=== PATIENT | male | born 1970 | race Caucasian/White ===

== ENCOUNTER 2018-05-15 19:04 | Inpatient (IN) | payer OTHER ==
[2018-05-15] MEDS ORDERED: THIAMINE 100 MG/ML 2 ML VIAL IM STA ×2 (19:39→20:02)
[2018-05-15] MEDS ORDERED: SODIUM CHLORIDE 0.9% 1,000 ML IV STA ×2 (19:39)
[2018-05-15] MEDS ORDERED: MULTIVITAMINS, THERA 1 EACH TAB PO STA (19:39)
[2018-05-15] MEDS ORDERED: SODIUM CHLORIDE 0.9% 1,000 ML with MVI, ADULT NO.4 WITH VIT K 10 ML, THIAMINE 100 MG, F... IV ONE ×4 (19:40)
[2018-05-15] MEDS ORDERED: IPRATROPIUM-ALBUTEROL 3 ML NEB INHALATION STA (19:41)
[2018-05-15] MEDS ORDERED: cefTRIAXone IN SWFI 1,000 MG/10 ML SYRINGE IVP STA (19:42)
[2018-05-15 19:55] LABS: Basophils # (A) 0.1 k/uL (0-0.2); Basophils % (A) 1 %; Eosinophils % (A) 1 %; HCT 41.2 % (39.0-53.0); HGB 13.7 gm/dL (13.0-17.5); Lymphocytes # (A) 2.5 k/uL (1.0-4.8); Lymphocytes % (A) 29 %; MCH 38.6 pg (25.0-35.0); MCHC 33.3 g/dL (31.0-37.0); Macrocytosis Marked; Mean Platelet Volume 9.6; Monocytes # (A) 0.6 k/uL (0-1.0); Monocytes % (A) 7 %; Neutrophils # (A) 5.2 k/uL (1.3-7.7); Neutrophils % (A) 60 %; RBC 3.55 m/uL (4.30-5.90); RDW 14.6 % (11.5-15.5); WBC 8.6 k/uL (3.8-10.6)
[2018-05-15 19:58] LABS: Glucose,Whole Blood 87 mg/dL (75-99)
[2018-05-15] MEDS ORDERED: LORazepam 2 MG/ML INJ IV PRN ×3 (20:02)
[2018-05-15 20:09] LABS: ALT 35 U/L (21-72); AST 222 U/L (17-59); Albumin 3.5 g/dL (3.5-5.0); Alkaline Phosphatase 258 U/L (38-126); Amylase 67 U/L (30-110); Anion Gap 20 mmol/L; Blood Urea Nitrogen 9 mg/dL (9-20); Calcium 7.4 mg/dL (8.4-10.2); Carbon Dioxide 30 mmol/L (22-30); Chloride 92 mmol/L (98-107); Glucose 89 mg/dL (74-99); Lipase 585 U/L (23-300); Magnesium 1.4 mg/dL (1.6-2.3); Phosphorus 3.7 mg/dL (2.5-4.5); Potassium 3.8 mmol/L (3.5-5.1); Sodium 142 mmol/L (137-145); Total Protein 9.1 g/dL (6.3-8.2)
[2018-05-15] MEDS ORDERED: methylPREDNISolone SOD SUCCI 125 MG/2 ML VIAL IV STA (20:09)
--- NOTE | 2018-05-15 20:09 | ED ---
Alcohol HPI - General Source: family, EMS, RN notes reviewed, old records reviewed Mode of arrival: EMS Limitations: no limitations - History of Present Illness MD Complaint: alcohol dependence <Geraldine Pennington - Last Filed: 05/15/18 20:28> <Juan Lawrence - Last Filed: 05/15/18 22:27> - General Chief Complaint: Alcohol Stated Complaint: etoh Time Seen by Provider: 05/15/18 19:30 - History of Present Illness Initial Comments: 47-year-old male with history of severe chronic alcoholism presents today with increased weakness, cough and shortness of breath, and for treatment for his alcohol is. He is brought here by his sister. Arrived via EMS. Patient reports that he drinks approximately a pint a day over the past month. Prior to this it was a fifth or handle. Patient has been drinking since he was 14 years old. Patient reports that he lives with home with his mother. They do report that is possible he could've aspirated causing pneumonia. He does smoke. Does report that he knows that his urine has been very dark in color. denies any fever or chills. Patient denies any recent fever, chills, chest pain, back pain, abdominal pain, numbness or tingling, dysuria, constipation or diarrhea, headaches or visual changes, or any other current symptoms (Geraldine Pennington) - Related Data Home Medications Medication Instructions Recorded Confirmed No Known Home Medications [No 05/15/18 05/15/18 Known Home Medications] Allergies Allergy/AdvReac Type Severity Reaction Status Date / Time No Known Allergies Allergy Verified 05/15/18 19:23 Review of Systems ROS Other: All systems not noted in ROS Statement are negative. <Geraldine Pennington - Last Filed: 05/15/18 20:28> ROS Other: All systems not noted in ROS Statement are negative. <Juan Lawrence - Last Filed: 05/15/18 22:27> ROS Statement: Those systems with pertinent positive or pertinent negative responses have been documented in the HPI. Past Medical History Past Medical History: No Reported History, Seizure Disorder Additional Past Medical History / Comment(s): Pt admitted to [facility] ER via EMS at 0751 on 10/21/14 for altered mental status. All hx obtained from medical records and pt's mother. Pt is currently a unreliable historian. Pt recently had stopped drinking alcohol. He drank 1/2 pint liquor last nite around 1900 because he was feeling "bad". He had not drank alcohol for 2 days prior to that. Mother states she left the house for a short time and when she returned she heard banging noises in the bathroom and opened door enough to see pt lying on the floor. She was not certain if he was breathing. Pt had blood coming from his mouth. Mother then dialed 911. Pt has no other hx than the ETOH abuse. History of Any Multi-Drug Resistant Organisms: None Reported Past Surgical History: No Surgical Hx Reported Additional Past Surgical History / Comment(s): Pt's mother states he has never had surgery. Past Anesthesia/Blood Transfusion Reactions: No Reported Reaction Past Psychological History: Depression Smoking Status: Current every day smoker Past Alcohol Use History: Daily, Heavy Past Drug Use History: None Reported, Marijuana - Past Family History Father Family Medical History: Diabetes Mellitus, Hypertension Additional Family Medical History / Comment(s): Father is alive and is 66 yrs old. Mother Family Medical History: No Reported History Additional Family Medical History / Comment(s): Mother is alive at 66yrs of age. <Geraldine Pennington - Last Filed: 05/15/18 20:28> General Exam Limitations: no limitations General appearance: alert, in no apparent distress Head exam: Present: atraumatic, normocephalic, normal inspection Eye exam: Present: normal appearance, PERRL, EOMI. Absent: scleral icterus, conjunctival injection, periorbital swelling ENT exam: Present: normal exam, mucous membranes moist Neck exam: Present: normal inspection. Absent: tenderness, meningismus, lymphadenopathy Respiratory exam: Present: wheezes (Patient has significant wheezing and rhonchi throughout all lung suarez.). Absent: normal lung sounds bilaterally, respiratory distress, rales, rhonchi, stridor Cardiovascular Exam: Present: regular rate, normal rhythm, normal heart sounds. Absent: systolic murmur, diastolic murmur, rubs, gallop, clicks GI/Abdominal exam: Present: soft, normal bowel sounds. Absent: distended, tenderness, guarding, rebound, rigid Extremities exam: Present: normal inspection, full ROM, normal capillary refill. Absent: tenderness, pedal edema, joint swelling, calf tenderness Back exam: Present: normal inspection Neurological exam: Present: alert, oriented X3, CN II-XII intact Psychiatric exam: Present: normal affect, normal mood Skin exam: Present: warm, dry, intact. Absent: normal color (Patient has significant jaundice. Patient's skin icteric as well as eyes.), rash <Geraldine Pennington - Last Filed: 05/15/18 20:28> <Juan Lawrence - Last Filed: 05/15/18 22:27> - General Exam Comments Initial Comments: 47-year-old male. He appears very weak. He appears icteric. Patient is unkept, apparently Patient is not showered and quite some time. ( Geraldine Pennington) Vital Signs 05/15/18 05/15/18 05/15/18 19:12 20:17 20:41 Temperature 97.7 F 97.5 F L Pulse Rate 116 H 110 H 110 H Respiratory 20 20 Rate Blood Pressure 119/72 130/68 O2 Sat by Pulse 97 96 Oximetry 05/15/18 05/15/18 05/15/18 20:49 21:00 21:57 Temperature Pulse Rate 110 H 102 H 76 Respiratory 20 18 Rate Blood Pressure 111/68 115/92 O2 Sat by Pulse 98 97 Oximetry Medical Decision Making - Lab Data Result diagrams: 05/15/18 19:29 05/15/18 19:29 - Radiology Data Radiology results: report reviewed <Geraldine Pennington - Last Filed: 05/15/18 20:28> - Lab Data Result diagrams: 05/15/18 19:29 05/15/18 19:29 <Juan Lawrence - Last Filed: 05/15/18 22:27> - Medical Decision Making 47-year-old male with a history of severe alcoholism presents emergency department today with increased weakness shortness of breath. He is a heavy smoker. Patient appears extremely icteric on exam. He has no other complaints denies any chest pain or abdominal pain. His family brought him in due to severe weakness. Patient was started on IV fluids, started on banana bag, he does have coarse lung sounds are all lung suarez. Given Rocephin and Solu- Medrol and breathing treatment, for possible pneumonia. Chest x-ray obtained. Patient has severe elevation of bilirubin of 21.8. ETOH levels 435. At this time are pending ultrasound results and a few other labs. Final disposition will be made by Dr. Lawrence. Care was transferred at 8:30 PM. (Geraldine Pennington) Case discussed with Dr. Mahmood. Patient will be admitted for medical management. Acalculous cholecystitis may be normal finding in this clinical picture. (Juan Lawrence) - Lab Data Lab Results 05/15/18 05/15/18 05/15/18 Range/Units 19:29 19:29 19:29 WBC 8.6 (3.8-10.6) k/uL RBC 3.55 L (4.30-5.90) m/uL Hgb 13.7 (13.0-17.5) gm/dL Hct 41.2 (39.0-53.0) % MCV 116.0 H (80.0-100.0) fL MCH 38.6 H (25.0-35.0) pg MCHC 33.3 (31.0-37.0) g/dL RDW 14.6 (11.5-15.5) % Plt Count 44 L* (150-450) k/uL Neutrophils % 60 % Lymphocytes % 29 % Monocytes % 7 % Eosinophils % 1 % Basophils % 1 % Neutrophils # 5.2 (1.3-7.7) k/uL Lymphocytes # 2.5 (1.0-4.8) k/uL Monocytes # 0.6 (0-1.0) k/uL Eosinophils # 0.0 (0-0.7) k/uL Basophils # 0.1 (0-0.2) k/uL Manual Slide Review Performed Macrocytosis Marked PT 18.3 H (9.0-12.0) sec INR 2.0 H (<1.2) APTT 32.1 H (22.0-30.0) sec Sodium 142 (137-145) mmol/L Potassium 3.8 (3.5-5.1) mmol/L Chloride 92 L (98-107) mmol/L Carbon Dioxide 30 (22-30) mmol/L Anion Gap 20 mmol/L BUN 9 (9-20) mg/dL Creatinine 0.60 L (0.66-1.25) mg/dL Est GFR (CKD-EPI)AfAm >90 (>60 ml/min/1.73 sqM) Est GFR (CKD-EPI)NonAf >90 (>60 ml/min/1.73 sqM) Glucose 89 (74-99) mg/dL POC Glucose (mg/dL) (75-99) mg/dL POC Glu Media Services Director ID Plasma Lactic Acid Nik (0.7-2.0) mmol/L Calcium 7.4 L (8.4-10.2) mg/dL Phosphorus 3.7 (2.5-4.5) mg/dL Magnesium 1.4 L (1.6-2.3) mg/dL Total Bilirubin 21.8 H* (0.2-1.3) mg/dL Conjugated Bilirubin (0.0-0.3) mg/dL Unconjugated Bilirubin (0.0-1.1) mg/dL Delta Bilirubin (0.0-0.2) mg/dL AST 222 H (17-59) U/L ALT 35 (21-72) U/L Alkaline Phosphatase 258 H (38-126) U/L Total Protein 9.1 H (6.3-8.2) g/dL Albumin 3.5 (3.5-5.0) g/dL Amylase 67 (30-110) U/L Lipase 585 H (23-300) U/L Urine Color Urine Appearance (Clear) Urine pH (5.0-8.0) Ur Specific [place] (1.001-1.035) Urine Protein (Negative) Urine Glucose (UA) (Negative) Urine Ketones (Negative) Urine Blood (Negative) Urine Nitrite (Negative) Urine Bilirubin (Negative) Urine Urobilinogen (<2.0) mg/dL Ur Leukocyte Esterase (Negative) Urine RBC (0-5) /hpf Urine WBC (0-5) /hpf Urine Bacteria (None) /hpf Cellular Casts (0) /lpf Urine Mucus (None) /hpf Urine Opiates Screen (NotDetected) Ur Oxycodone Screen (NotDetected) Urine Methadone Screen (NotDetected) Ur Propoxyphene Screen (NotDetected) Acetaminophen ug/mL Ur Barbiturates Screen (NotDetected) U Tricyclic Antidepress (NotDetected) Ur Phencyclidine Scrn (NotDetected) Ur Amphetamines Screen (NotDetected) U Methamphetamines Scrn (NotDetected) U Benzodiazepines Scrn (NotDetected) Urine Cocaine Screen (NotDetected) U Marijuana (THC) Screen (NotDetected) Serum Alcohol 435 mg/dL Hepatitis A IgM Ab 05/15/18 05/15/18 05/15/18 Range/Units 19:29 19:29 19:29 WBC (3.8-10.6) k/uL RBC (4.30-5.90) m/uL Hgb (13.0-17.5) gm/dL Hct (39.0-53.0) % MCV (80.0-100.0) fL MCH (25.0-35.0) pg MCHC (31.0-37.0) g/dL RDW (11.5-15.5) % Plt Count (150-450) k/uL Neutrophils % % Lymphocytes % % Monocytes % % Eosinophils % % Basophils % % Neutrophils # (1.3-7.7) k/uL Lymphocytes # (1.0-4.8) k/uL Monocytes # (0-1.0) k/uL Eosinophils # (0-0.7) k/uL Basophils # (0-0.2) k/uL Manual Slide Review Macrocytosis PT (9.0-12.0) sec INR (<1.2) APTT (22.0-30.0) sec Sodium (137-145) mmol/L Potassium (3.5-5.1) mmol/L Chloride (98-107) mmol/L Carbon Dioxide (22-30) mmol/L Anion Gap mmol/L BUN (9-20) mg/dL Creatinine (0.66-1.25) mg/dL Est GFR (CKD-EPI)AfAm (>60 ml/min/1.73 sqM) Est GFR (CKD-EPI)NonAf (>60 ml/min/1.73 sqM) Glucose (74-99) mg/dL POC Glucose (mg/dL) (75-99) mg/dL POC Glu Media Services Director ID Plasma Lactic Acid Nik 2.9 H* (0.7-2.0) mmol/L Calcium (8.4-10.2) mg/dL Phosphorus (2.5-4.5) mg/dL Magnesium (1.6-2.3) mg/dL Total Bilirubin 22.0 H* (0.2-1.3) mg/dL Conjugated Bilirubin 16.0 H (0.0-0.3) mg/dL Unconjugated Bilirubin 2.5 H (0.0-1.1) mg/dL Delta Bilirubin 3.5 H (0.0-0.2) mg/dL AST (17-59) U/L ALT (21-72) U/L Alkaline Phosphatase (38-126) U/L Total Protein (6.3-8.2) g/dL Albumin (3.5-5.0) g/dL Amylase (30-110) U/L Lipase (23-300) U/L Urine Color Urine Appearance (Clear) Urine pH (5.0-8.0) Ur Specific [place] (1.001-1.035) Urine Protein (Negative) Urine Glucose (UA) (Negative) Urine Ketones (Negative) Urine Blood (Negative) Urine Nitrite (Negative) Urine Bilirubin (Negative) Urine Urobilinogen (<2.0) mg/dL Ur Leukocyte Esterase (Negative) Urine RBC (0-5) /hpf Urine WBC (0-5) /hpf Urine Bacteria (None) /hpf Cellular Casts (0) /lpf Urine Mucus (None) /hpf Urine Opiates Screen (NotDetected) Ur Oxycodone Screen (NotDetected) Urine Methadone Screen (NotDetected) Ur Propoxyphene Screen (NotDetected) Acetaminophen <10.0 ug/mL Ur Barbiturates Screen (NotDetected) U Tricyclic Antidepress (NotDetected) Ur Phencyclidine Scrn (NotDetected) Ur Amphetamines Screen (NotDetected) U Methamphetamines Scrn (NotDetected) U Benzodiazepines Scrn (NotDetected) Urine Cocaine Screen (NotDetected) U Marijuana (THC) Screen (NotDetected) Serum Alcohol mg/dL Hepatitis A IgM Ab 05/15/18 05/15/18 05/15/18 Range/Units 19:55 20:10 21:21 WBC (3.8-10.6) k/uL RBC (4.30-5.90) m/uL Hgb (13.0-17.5) gm/dL Hct (39.0-53.0) % MCV (80.0-100.0) fL MCH (25.0-35.0) pg MCHC (31.0-37.0) g/dL RDW (11.5-15.5) % Plt Count (150-450) k/uL Neutrophils % % Lymphocytes % % Monocytes % % Eosinophils % % Basophils % % Neutrophils # (1.3-7.7) k/uL Lymphocytes # (1.0-4.8) k/uL Monocytes # (0-1.0) k/uL Eosinophils # (0-0.7) k/uL Basophils # (0-0.2) k/uL Manual Slide Review Macrocytosis PT (9.0-12.0) sec INR (<1.2) APTT (22.0-30.0) sec Sodium (137-145) mmol/L Potassium (3.5-5.1) mmol/L Chloride (98-107) mmol/L Carbon Dioxide (22-30) mmol/L Anion Gap mmol/L BUN (9-20) mg/dL Creatinine (0.66-1.25) mg/dL Est GFR (CKD-EPI)AfAm (>60 ml/min/1.73 sqM) Est GFR (CKD-EPI)NonAf (>60 ml/min/1.73 sqM) Glucose (74-99) mg/dL POC Glucose (mg/dL) 87 (75-99) mg/dL POC Glu Media Services Director ID Himanshumirandaburak Vicente Plasma Lactic Acid Nik (0.7-2.0) mmol/L Calcium (8.4-10.2) mg/dL Phosphorus (2.5-4.5) mg/dL Magnesium (1.6-2.3) mg/dL Total Bilirubin (0.2-1.3) mg/dL Conjugated Bilirubin (0.0-0.3) mg/dL Unconjugated Bilirubin (0.0-1.1) mg/dL Delta Bilirubin (0.0-0.2) mg/dL AST (17-59) U/L ALT (21-72) U/L Alkaline Phosphatase (38-126) U/L Total Protein (6.3-8.2) g/dL Albumin (3.5-5.0) g/dL Amylase (30-110) U/L Lipase (23-300) U/L Urine Color Dark Brown Urine Appearance Turbid (Clear) Urine pH 6.5 (5.0-8.0) Ur Specific [place] 1.020 (1.001-1.035) Urine Protein 1+ H (Negative) Urine Glucose (UA) Negative (Negative) Urine Ketones 1+ H (Negative) Urine Blood Moderate H (Negative) Urine Nitrite Negative (Negative) Urine Bilirubin 4+ H (Negative) Urine Urobilinogen >12.0 (<2.0) mg/dL Ur Leukocyte Esterase Negative (Negative) Urine RBC 4 (0-5) /hpf Urine WBC 3 (0-5) /hpf Urine Bacteria Few H (None) /hpf Cellular Casts 496 (0) /lpf Urine Mucus Many H (None) /hpf Urine Opiates Screen Not Detected (NotDetected) Ur Oxycodone Screen Not Detected (NotDetected) Urine Methadone Screen Not Detected (NotDetected) Ur Propoxyphene Screen Not Detected (NotDetected) Acetaminophen ug/mL Ur Barbiturates Screen Not Detected (NotDetected) U Tricyclic Antidepress Not Detected (NotDetected) Ur Phencyclidine Scrn Not Detected (NotDetected) Ur Amphetamines Screen Not Detected (NotDetected) U Methamphetamines Scrn Not Detected (NotDetected) U Benzodiazepines Scrn Not Detected (NotDetected) Urine Cocaine Screen Not Detected (NotDetected) U Marijuana (THC) Screen Not Detected (NotDetected) Serum Alcohol mg/dL Hepatitis A IgM Ab NEGATIVE 05/15/18 20:08 EKG performed at 1946 shows sinus tachycardia, low voltage QRS. Borderline EKG. 2. 101 bpm. RI interval is 1:30 milliseconds. QRS duration is 88 ms. QT QTc is 386/400 ms. (Geraldine Pennington) - Radiology Data X-ray shows normal chest clearing of left upper mild atelectasis compared old exam. (Geraldine Pennington) Disposition <Geraldine Pennington - Last Filed: 05/15/18 20:28> Is patient prescribed a controlled substance at d/c from ED?: No Decision to Admit Reason: Admit from EC Decision Date: 05/15/18 Decision Time: 22:27 <Juan Lawrence - Last Filed: 05/15/18 22:27> Clinical Impression: Alcoholic hepatitis, Hyperbilirubinemia, Alcohol intoxication, EtOH dependence Disposition: ADMITTED IP TO THIS HOSP Condition: Serious Referrals: None,Stated [Primary Care Provider] - 1-2 days
[2018-05-15 20:19] LABS: Alcohol 435 mg/dL; Total Bilirubin 21.8 mg/dL (0.2-1.3)
[2018-05-15 20:21] LABS: Partial Thromboplastin Time 32.1 sec (22.0-30.0); Prothrombin Time 18.3 sec (9.0-12.0)
[2018-05-15] MEDS ORDERED: MAGNESIUM SULFATE-D5W PMX 1 GM in DEXTROSE/WATER 1 100ML.BAG IVPB ONE (20:24)
--- NOTE | 2018-05-15 20:26 | XR ---
EXAMINATION TYPE: XR chest 2V DATE OF EXAM: 05/15/2018 COMPARISON: 08/23/2015 HISTORY: Lethargy TECHNIQUE: Frontal and lateral views of the chest are obtained. FINDINGS: Heart and mediastinum are normal. Lungs are clear. Diaphragm is normal. There are chest le ads. Bony thorax appears normal. IMPRESSION: Normal chest. There is clearing of left upper lobe mild atelectasis compared to old exam .
[2018-05-15 20:28] LABS: Bilirubin, Delta 3.5 mg/dL (0.0-0.2); Bilirubin,Unconjugated 2.5 mg/dL (0.0-1.1)
[2018-05-15 20:29] LABS: Platelet Count 44 k/uL (150-450)
[2018-05-15 21:05] LABS: Hepatitis A AB IgM Index 0.01; Hepatitis A Antibody IgM NEGATIVE
[2018-05-15 21:36] LABS: Appearance,Urine Turbid (Clear); Bacteria,Urine Few /hpf; Bilirubin,Urine 4+ (Negative); Blood,Urine Moderate (Negative); Cellular Casts,Urine 496 /lpf (0); Color,Urine Dark Brown; Glucose,Urine (UA) Negative (Negative); Ketones,Urine 1+ (Negative); Leukocyte Esterase,Urine Negative (Negative); Mucus,Urine Many /hpf; Nitrite,Urine Negative (Negative); PH, Urine 6.5 (5.0-8.0); Protein,Urine 1+ (Negative); RBC,Urine 4 /hpf (0-5); Urobilinogen,Urine >12.0 mg/dL (<2.0); WBC,Urine 3 /hpf (0-5)
[2018-05-15 21:42] LABS: Amphetamine Screen,Urine Not Detected (NotDetected); Barbiturate Screen,Urine Not Detected (NotDetected); Benzodiazepines Screen,Urine Not Detected (NotDetected); Cocaine Screen,Urine Not Detected (NotDetected); Methadone Screen, Urine Not Detected (NotDetected); Opiate Screen,Urine Not Detected (NotDetected); Oxycodone Screen, Urine Not Detected (NotDetected); Phencyclidine Screen,Urine Not Detected (NotDetected); Tricyclic Antidepressant,Urine Not Detected (NotDetected); Urn Cannabinoid Scrn Not Detected (NotDetected)
--- NOTE | 2018-05-15 22:06 | US ---
EXAMINATION TYPE: US gallbladder DATE OF EXAM: 05/15/2018 COMPARISON: NONE CLINICAL HISTORY: Pain. Pain ETOH. Exam limitations due to body habitus unable to penetrate. EXAM MEASUREMENTS: Liver Length: 19.9 cm Gallbladder Wall: 0.53 cm CBD: 0.6 cm Right Kidney: 11.6 x 5.5 x 5.3 cm Pancreas: Obscured by bowel gas Liver: Increased attenuation Gallbladder: Sludge seen with free fluid and thickened wall. Evidence for sonographic Hunt's sign: No CBD: wnl Right Kidney: Appears wnl. Sludge in gallbladder with some free fluid and thickened wall. IMPRESSION: There is thickening gallbladder wall with echogenic bile. This is consistent with acalcul ous cholecystitis. No dilated ducts.
[2018-05-15] MEDS ORDERED: NALOXONE 0.4 MG/ML 1 ML VIAL IV PRN (22:23)
[2018-05-16 01:03] LABS: Hepatitis B Core IgM Non-Reactive (Non-Reactive)
[2018-05-16] MEDS: metroNIDAZOLE-NS PMX 500 MG in SALINE 1 100ML.BAG IVPB SCH ×4 (01:51→23:45)
[2018-05-16] MEDS: PHYTONADIONE ORAL 5 MG/5 ML ORAL.SYRG PO SCH (03:38)
--- NOTE | 2018-05-16 06:16 | HP ---
HISTORY AND PHYSICAL DATE OF SERVICE: 05/15/18 CHIEF COMPLAINT: Confusion and jaundice. HISTORY OF PRESENT ILLNESS: This 47-year-old gentleman with a past history of seizure disorder, history of significant alcohol intake since age of 12, history of depression not being followed by any primary physician in the outpatient setting was noted by the family to have some change in mental status. Apparently the patient is drinking heavily. The patient drinks as much as he can get a hold of according to the brother who is at the bedside. He drinks up to a pint of alcohol. The family brought the patient to the hospital and the patient admitted for further evaluation and treatment. The patient was found to be deeply jaundiced and the bilirubin was found to be 22 with conjugated 16 and AST was 222 and lipase is 585. Amylase is 67. Patient was admitted to the hospital for further evaluation and treatment. The patient is slightly confused but able to give sketchy history at this time. There is no history of fever, rigors or chills. No history of headache, loss of consciousness, seizures. PAST MEDICAL HISTORY: Seizure disorder, ETOH and depression. MEDICATIONS: Prior to admission home medications are not known. ALLERGIES: None. FAMILY HISTORY: History of diabetes and hypertension. SOCIAL HISTORY: History of THC, alcohol, smoking. REVIEW OF SYSTEMS: ENT: No diminished vision. No diminished hearing. CARDIOVASCULAR: No angina. RESPIRATION: No cough or hemoptysis. GI as mentioned earlier. : No dysuria. NERVOUS SYSTEM: No numbness or weakness. ALLERGY/IMMUNOLOGY: No asthma or hay fever. MUSCULOSKELETAL: As mentioned earlier. HEMATOLOGY/ONCOLOGY: No history of anemia. ENDOCRINE: No history of diabetes or hypothyroidism. CONSTITUTIONAL: As mentioned earlier. DERMATOLOGY: Negative. RHEUMATOLOGY: Negative. PSYCHIATRY: As mentioned earlier. PHYSICAL EXAMINATION: Alert oriented x3. Pulse is 93, blood pressure 120/79, respiration 18. Temperature 98.2, pulse ox 97% on 2 L. HEENT is conjunctivae icteric. Oral mucosa icteric. NECK is no jugular venous distention. No carotid bruit. No lymph node enlargement. CARDIOVASCULAR: S1-S2 muffled. RESPIRATORY: Breath sounds diminished in the bases. A few scattered rhonchi and no crackles. ABDOMEN: Soft. Diffuse distention. Ascites present. Nontender. No mass palpable. No guarding. No rigidity. Bowel sounds diminished. LEGS: Bilateral minimal leg edema. NERVOUS SYSTEM: Higher functions as mentioned earlier. Moves all 4 limbs. Diffusely weak and tremulous. Hepatic flap present. SKIN: Jaundiced. LYMPHATICS: No lymph nodes palpable in the neck, axillae or groin. JOINTS: No active deforming arthropathy. LABS: WBC 8.2, hemoglobin 13.7, MCV 116, platelets of 44. INR is 2. Plasma lactic acid 3.6 and total bilirubin is 22. Other labs are noted. ASSESSMENT: 1. Acute alcoholic hepatitis and acute hepatic failure secondary to possibly cirrhosis of the liver. 2. Ascites. 3. Thrombocytopenia. 4. Alcoholism. 5. Increased plasma lactic acid. 6. Increased AST with alcoholic hepatitis. 7. Increased lipase with mild pancreatitis. 8. History of nicotine dependence. 9. History of seizure disorder. 10.History of depression. RECOMMENDATIONS AND DISCUSSION: In this 47-year-old gentleman who presented with multiple complex medical issues, at this time, we will monitor the patient closely. Continue the current management and symptomatic treatment. Otherwise broad-spectrum IV antibiotics initiated. We will obtain cultures. Gastroenterology evaluation. Will check serum ammonia, lactulose. CT scan of the abdomen and pelvis. Overall prognosis is extremely guarded because of multiple complex medical issues and discussed with the patient and brother at the bedside. Further recommendations to follow. MMODL / IJN: [id number] /
[2018-05-16] MEDS: LACTULOSE 20 GM/30 ML CUP PO SCH ×3 (08:00→23:45)
[2018-05-16 08:41] LABS: Basophils % (A) 0 %; Eosinophils % (A) 0 %; HCT 35.4 % (39.0-53.0); HGB 11.9 gm/dL (13.0-17.5); Lymphocytes # (A) 0.8 k/uL (1.0-4.8); Lymphocytes % (A) 15 %; MCH 40.3 pg (25.0-35.0); MCHC 33.6 g/dL (31.0-37.0); MCV 120.2 fL (80.0-100.0); Macrocytosis Marked; Mean Platelet Volume 9.5; Monocytes # (A) 0.1 k/uL (0-1.0); Monocytes % (A) 2 %; Neutrophils # (A) 4.5 k/uL (1.3-7.7); Neutrophils % (A) 83 %; RBC 2.94 m/uL (4.30-5.90); RDW 15.3 % (11.5-15.5); WBC 5.5 k/uL (3.8-10.6)
[2018-05-16 08:49] LABS: ALT 34 U/L (21-72); AST 197 U/L (17-59); Alkaline Phosphatase 203 U/L (38-126); Anion Gap 19 mmol/L; Blood Urea Nitrogen 10 mg/dL (9-20); Calcium 6.7 mg/dL (8.4-10.2); Carbon Dioxide 25 mmol/L (22-30); Chloride 96 mmol/L (98-107); Glucose 115 mg/dL (74-99); Magnesium 1.5 mg/dL (1.6-2.3); Platelet Count 35 k/uL (150-450); Potassium 3.9 mmol/L (3.5-5.1); Sodium 140 mmol/L (137-145); Total Protein 7.6 g/dL (6.3-8.2)
[2018-05-16 08:52] LABS: Lactic Acid, Venous 2.8 mmol/L (0.7-2.0)
[2018-05-16 08:58] LABS: INR 2.2 (<1.2); Prothrombin Time 20.1 sec (9.0-12.0)
[2018-05-16 09:03] LABS: Total Bilirubin 21.5 mg/dL (0.2-1.3)
--- NOTE | 2018-05-16 10:41 | CT ---
EXAMINATION TYPE: CT abdomen pelvis wo con DATE OF EXAM: 05/16/2018 HISTORY: Cirrhosis and pain. CT DLP: 975.10 mGycm. Automated Exposure Control for Dose Reduction was Utilized. TECHNIQUE: CT scan of the abdomen and pelvis is performed without oral or IV contrast. COMPARISON: CT chest abdomen and pelvis August 20, 2015 FINDINGS: Within the limitations of a non-contrast study, the following observations are made. LUNG BASES: There is new tiny left and small to tiny right pleural effusion with associated compressi ve atelectasis. There is coronary artery calcification which is noted marker for coronary artery dise ase. LIVER/GB: Liver is normal in size and heterogeneously hypodense consistent with marked fatty infiltra tion. No ductal dilatation is present. No obvious suspicious mass seen though evaluation suboptimal d ue to marked fatty infiltration for smaller masses. No surrounding ascites is seen. Gallbladder has d iffuse increased density suggesting sludge and/or small stones. Distended peripheral margins are seen . PANCREAS: No significant abnormality is seen. SPLEEN: No significant abnormality is seen. ADRENALS: No significant abnormality is seen. KIDNEYS: Mild perinephric fat stranding in both kidneys is nonspecific finding. No renal calculi or h ydronephrosis is present. Distention of bladder is present. A few right-sided pelvic phleboliths are seen. BOWEL: There are few diverticula in the distal colon. Evaluation bowel is suboptimal secondary to lac k of enteric contrast. There is mild to moderate wall thickening involving the right colon with mild fat stranding at this level and fluid extending into paracolic gutter. No suspicious small or large b owel dilatation. GENITAL ORGANS: Central zone calcifications are seen in nonenlarged prostate gland. LYMPH NODES: No greater than 1cm abdominal or pelvic lymph nodes are appreciated. OSSEOUS STRUCTURES: There is moderate disc space narrowing and spurring at lumbosacral junction. Spin e is straightened on sagittal images. There is mild facet arthropathy lower lumbar levels. OTHER: There is mild mesenteric edema. IMPRESSION: 1. Marked fatty infiltration of liver. No ductal dilatation or surrounding ascites. No splenomegaly n oted. 2. Mild mesenteric edema without focal fluid. Cannot exclude acute right-sided colitis versus extensi on of mesenteric fluid into the right paracolic gutter, former however is favored given fairly modera te right-sided colonic wall thickening. Correlate clinically.
[2018-05-16] MEDS: THIAMINE 100 MG TAB PO SCH ×2 (11:34→15:54)
--- NOTE | 2018-05-16 13:04 | P.CONS ---
History of Present Illness - Reason for Consult Consult date: 05/16/18 Liver failure Requesting physician: Erasto Paredes - History of Present Illness 47-year-old male with a history of long-standing alcohol abuse since his teens actively drinking alcohol admitted with cough weakness shortness of breath jaundice elevated liver enzymes. White count 8.6. Hemoglobin 13.7. Platelet 44,000. INR 2.2. Total bilirubin 21.5. AST 197. ALT 34. Alkaline phosphates 203. Ammonia 76. Lipase 585. Amylase 67. BUN 10. Creatinine 0.7. Hepatitis screen nonreactive. Serum alcohol 435. Acetaminophen less than 10. Ultrasound abdomen thickened gallbladder wall with echogenic bile no dilated ducts. Liver 19.9 cm. CBD 0.[address] abdomen and pelvis marked fatty infiltration of liver no dilated ducts or ascites. Splenomegaly noted. Review of Systems Constitutional: Denies fever, chills, sweats, weight gain, or loss. HEENT: Negative for migraines, blurred vision or loss, earaches, drainage, tinnitus, oral mucosal lesions, dysphagia, or odynophagia. Cardiac: Negative for chest pain, arrhythmias, or palpitation. Respiratory: Admitted with shortness of breath cough denies, hemoptysis. Gastrointestinal: See HPI for pertinent findings. Genitourinary: Negative for hematuria, urgency, frequency, polyuria, dysuria, or penile discharge. Musculoskeletal: Negative for muscle aches, swelling, arthritis, and arthralgias. Neurologic: Negative for stroke or TIA. Endocrine: Negative for thyroid problems. Skin: Negative for rash or itching. Psychiatric: Negative history for depression and anxiety Past Medical History Past Medical History: Seizure Disorder Additional Past Medical History / Comment(s): Pt admitted to [facility] ER via EMS at 0751 on 10/21/14 for altered mental status. All hx obtained from medical records and pt's mother. Pt is currently a unreliable historian. Pt recently had stopped drinking alcohol. He drank 1/2 pint liquor last nite around 1900 because he was feeling "bad". He had not drank alcohol for 2 days prior to that. Mother states she left the house for a short time and when she returned she heard banging noises in the bathroom and opened door enough to see pt lying on the floor. She was not certain if he was breathing. Pt had blood coming from his mouth. Mother then dialed 911. Pt has no other hx than the ETOH abuse. History of Any Multi-Drug Resistant Organisms: None Reported Past Surgical History: No Surgical Hx Reported Additional Past Surgical History / Comment(s): Pt's mother states he has never had surgery. Past Anesthesia/Blood Transfusion Reactions: No Reported Reaction Past Psychological History: Depression Additional Psychological History / Comment(s): Pt lives at home with his mother. He is currently unemployed. 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 Pt drinks large amounts of alcohol daily. Approximately a pint to a fifth daily. Smoking Status: Current every day smoker Past Alcohol Use History: Daily, Heavy Past Drug Use History: None Reported, Marijuana - Past Family History Father Family Medical History: Diabetes Mellitus, Hypertension Additional Family Medical History / Comment(s): Father is alive and is 66 yrs old. Mother Family Medical History: No Reported History Additional Family Medical History / Comment(s): Mother is alive at 66yrs of age. Medications and Allergies Home Medications Medication Instructions Recorded Confirmed Type No Known Home Medications [No 05/15/18 05/15/18 History Known Home Medications] Allergies Allergy/AdvReac Type Severity Reaction Status Date / Time No Known Allergies Allergy Verified 05/15/18 19:23 Physical Exam Vitals: Vital Signs Temp Pulse Pulse Resp BP BP Pulse Ox 05/16/18 07:30 122/77 05/16/18 06:25 98.8 F 97 17 97/69 92 L 05/16/18 00:00 98.3 F 89 17 128/81 96 05/15/18 23:06 93 18 123/72 97 05/15/18 22:00 99 18 117/68 97 05/15/18 21:57 76 18 115/92 97 05/15/18 21:00 102 H 20 111/68 98 05/15/18 20:49 110 H 05/15/18 20:41 110 H 05/15/18 20:17 97.5 F L 110 H 20 130/68 96 05/15/18 19:12 97.7 F 116 H 20 119/72 97 Intake and Output 05/15/18 05/16/18 05/16/18 22:59 06:59 14:59 Other: Voiding Method Urinal Urinal Incontinent Incontinent # Voids 2 Weight 86.183 kg General appearance: The patient is alert, oriented, in no acute distress. Visibly jaundice. HET: Head is normocephalic and atraumatic. Pupils are equal and reactive. Sclerae icterus. Oropharynx is clear without lesions. Neck: Supple without lymphadenopathy. Trachea midline. Heart: S1 S2. Regular rate and rhythm. Lungs: No crackles or wheezes are heard. Abdomen: Soft, mildly bloated nontender with bowel sounds. No peritoneal signs. No palpable organomegaly or masses. Extremities: Normal skin color and turgor. No cyanosis, rash, ulceration, clubbing, or edema. Radial and pedal pulses are 2/4 bilaterally. Neurological: No focal deficits. Strength and sensation are grossly intact. Results CBC & Chem 7: 05/16/18 08:12 05/16/18 08:12 Labs: Abnormal Lab Results - Last 24 Hours (Table) 05/15/18 05/15/18 05/15/18 Range/Units 19:29 19:29 19:29 RBC 3.55 L (4.30-5.90) m/uL Hgb (13.0-17.5) gm/dL Hct (39.0-53.0) % MCV 116.0 H (80.0-100.0) fL MCH 38.6 H (25.0-35.0) pg Plt Count 44 L* (150-450) k/uL Lymphocytes # (1.0-4.8) k/uL PT 18.3 H (9.0-12.0) sec INR 2.0 H (<1.2) APTT 32.1 H (22.0-30.0) sec Chloride 92 L (98-107) mmol/L Creatinine 0.60 L (0.66-1.25) mg/dL Glucose (74-99) mg/dL Plasma Lactic Acid Nik (0.7-2.0) mmol/L Calcium 7.4 L (8.4-10.2) mg/dL Magnesium 1.4 L (1.6-2.3) mg/dL Total Bilirubin 21.8 H* (0.2-1.3) mg/dL Conjugated Bilirubin (0.0-0.3) mg/dL Unconjugated Bilirubin (0.0-1.1) mg/dL Delta Bilirubin (0.0-0.2) mg/dL AST 222 H (17-59) U/L Alkaline Phosphatase 258 H (38-126) U/L Ammonia (<30) umol/L Total Protein 9.1 H (6.3-8.2) g/dL Albumin (3.5-5.0) g/dL Lipase 585 H (23-300) U/L Urine Protein (Negative) Urine Ketones (Negative) Urine Blood (Negative) Urine Bilirubin (Negative) Urine Bacteria (None) /hpf Urine Mucus (None) /hpf 05/15/18 05/15/18 05/15/18 Range/Units 19:29 19:29 21:21 RBC (4.30-5.90) m/uL Hgb (13.0-17.5) gm/dL Hct (39.0-53.0) % MCV (80.0-100.0) fL MCH (25.0-35.0) pg Plt Count (150-450) k/uL Lymphocytes # (1.0-4.8) k/uL PT (9.0-12.0) sec INR (<1.2) APTT (22.0-30.0) sec Chloride (98-107) mmol/L Creatinine (0.66-1.25) mg/dL Glucose (74-99) mg/dL Plasma Lactic Acid Nik 2.9 H* (0.7-2.0) mmol/L Calcium (8.4-10.2) mg/dL Magnesium (1.6-2.3) mg/dL Total Bilirubin 22.0 H* (0.2-1.3) mg/dL Conjugated Bilirubin 16.0 H (0.0-0.3) mg/dL Unconjugated Bilirubin 2.5 H (0.0-1.1) mg/dL Delta Bilirubin 3.5 H (0.0-0.2) mg/dL AST (17-59) U/L Alkaline Phosphatase (38-126) U/L Ammonia (<30) umol/L Total Protein (6.3-8.2) g/dL Albumin (3.5-5.0) g/dL Lipase (23-300) U/L Urine Protein 1+ H (Negative) Urine Ketones 1+ H (Negative) Urine Blood Moderate H (Negative) Urine Bilirubin 4+ H (Negative) Urine Bacteria Few H (None) /hpf Urine Mucus Many H (None) /hpf 05/15/18 05/16/18 05/16/18 Range/Units 23:30 08:12 08:12 RBC 2.94 L (4.30-5.90) m/uL Hgb 11.9 L (13.0-17.5) gm/dL Hct 35.4 L (39.0-53.0) % MCV 120.2 H (80.0-100.0) fL MCH 40.3 H (25.0-35.0) pg Plt Count 35 L* (150-450) k/uL Lymphocytes # 0.8 L (1.0-4.8) k/uL PT (9.0-12.0) sec INR (<1.2) APTT (22.0-30.0) sec Chloride 96 L (98-107) mmol/L Creatinine (0.66-1.25) mg/dL Glucose 115 H (74-99) mg/dL Plasma Lactic Acid Nik 3.6 H* (0.7-2.0) mmol/L Calcium 6.7 L (8.4-10.2) mg/dL Magnesium 1.5 L (1.6-2.3) mg/dL Total Bilirubin 21.5 H* (0.2-1.3) mg/dL Conjugated Bilirubin (0.0-0.3) mg/dL Unconjugated Bilirubin (0.0-1.1) mg/dL Delta Bilirubin (0.0-0.2) mg/dL AST 197 H (17-59) U/L Alkaline Phosphatase 203 H (38-126) U/L Ammonia (<30) umol/L Total Protein (6.3-8.2) g/dL Albumin 3.0 L (3.5-5.0) g/dL Lipase (23-300) U/L Urine Protein (Negative) Urine Ketones (Negative) Urine Blood (Negative) Urine Bilirubin (Negative) Urine Bacteria (None) /hpf Urine Mucus (None) /hpf 05/16/18 05/16/18 Range/Units 08:12 08:12 RBC (4.30-5.90) m/uL Hgb (13.0-17.5) gm/dL Hct (39.0-53.0) % MCV (80.0-100.0) fL MCH (25.0-35.0) pg Plt Count (150-450) k/uL Lymphocytes # (1.0-4.8) k/uL PT 20.1 H (9.0-12.0) sec INR 2.2 H (<1.2) APTT (22.0-30.0) sec Chloride (98-107) mmol/L Creatinine (0.66-1.25) mg/dL Glucose (74-99) mg/dL Plasma Lactic Acid Nik 2.8 H* (0.7-2.0) mmol/L Calcium (8.4-10.2) mg/dL Magnesium (1.6-2.3) mg/dL Total Bilirubin (0.2-1.3) mg/dL Conjugated Bilirubin (0.0-0.3) mg/dL Unconjugated Bilirubin (0.0-1.1) mg/dL Delta Bilirubin (0.0-0.2) mg/dL AST (17-59) U/L Alkaline Phosphatase (38-126) U/L Ammonia 76 H (<30) umol/L Total Protein (6.3-8.2) g/dL Albumin (3.5-5.0) g/dL Lipase (23-300) U/L Urine Protein (Negative) Urine Ketones (Negative) Urine Blood (Negative) Urine Bilirubin (Negative) Urine Bacteria (None) /hpf Urine Mucus (None) /hpf CT scan - abdomen: report reviewed (Dr. Mahmood) US - abdomen: report reviewed (Dr. Mahmood) Assessment and Plan (1) Alcoholic hepatitis Narrative/Plan: Severe alcohol hepatitis. MDS score approximately 58. Current Visit: Yes Status: Acute Code(s): K70.10 - ALCOHOLIC HEPATITIS WITHOUT ASCITES SNOMED Code(s): 336042708 (2) Alcohol intoxication Current Visit: Yes Status: Acute Code(s): F10.129 - ALCOHOL ABUSE WITH INTOXICATION, UNSPECIFIED SNOMED Code(s): 66350838 (3) EtOH dependence Current Visit: Yes Status: Acute Code(s): F10.20 - ALCOHOL DEPENDENCE, UNCOMPLICATED SNOMED Code(s): 13716615 (4) Thrombocytopenia Current Visit: Yes Status: Acute Code(s): D69.6 - THROMBOCYTOPENIA, UNSPECIFIED SNOMED Code(s): 083021215 (5) Coagulopathy Current Visit: Yes Status: Acute Code(s): D68.9 - COAGULATION DEFECT, UNSPECIFIED SNOMED Code(s): 33502157 (6) Elevated lipase Current Visit: Yes Status: Acute Code(s): R74.8 - ABNORMAL LEVELS OF OTHER SERUM ENZYMES SNOMED Code(s): 247360821 (7) Hyperammonemia Narrative/Plan: Component of hepatic encephalopathy Current Visit: Yes Status: Acute Code(s): E72.20 - DISORDER OF UREA CYCLE METABOLISM, UNSPECIFIED SNOMED Code(s): 2019632 Plan: 1. Alcohol withdrawal protocol. Protonix 40 mg IV daily. Hold off on corticosteroid therapy secondary to elevated ammonia level. Daily ammonia, CBC , CMP PT/INR. If liver enzymes coagulopathy worsens recommend transfer to tertiary care center for further evaluation and treatment. Clear liquids. Lactulose 20 g 3 times a day. Alcohol abstinence strongly advised. Thank you for this kind referral and the opportunity to participate in the care of your patient. This consultation was discussed with Dr. Mahmood. The impression and plan of care have been directed as dictated.
[2018-05-16 14:55] VITALS: BP 129/69
--- NOTE | 2018-05-16 18:14 | P.PN ---
Subjective Progress Note Date: 05/16/18 Progress note being dictated for Dr. Paredes Interval history: This a 47-year-old gentleman admitted with acute alcoholic hepatitis, acute hepatic failure secondary to possibly liver cirrhosis, ascites , thrombocytopenia, alcoholism and multiple other medical issues. Maintained on IV antibiotics, seizure precautions, CIWA protocol. CT of abdomen and pelvis reporting infiltrated liver, no surrounding ascites, mild mesenteric edema, moderate right-sided colonic wall thickening -possible right-sided colitis , splenomegaly. Hepatitis screen nonreactive. INR 2.2, platelets 35, 000. T bili 21.5, LFTs improving, ammonia 76, lipase 585. Evaluated by GI with recommendations noted. Tolerating clear liquids, no nausea or vomiting. Denies abdominal pain. No seizure activity reported. Objective - Vital Signs Vital signs: Vital Signs Temp 98.6 F 05/16/18 14:54 Pulse 103 H 05/16/18 14:54 Resp 16 05/16/18 14:54 BP 129/69 05/16/18 14:54 Pulse Ox 98 05/16/18 14:54 Intake & Output 05/15/18 05/16/18 05/16/18 18:59 06:59 18:59 Weight 86.183 kg Other: Voiding Method Urinal Urinal Incontinent Incontinent # Voids 2 3 # Bowel Movements 1 - Exam PHYSICAL EXAM: VITAL SIGNS: As above GENERAL: Sitting up in bed, no acute distress, jaundiced HEENT: Pupils equal, sclerae icterus NECK: No JVD. No thyroid enlargement. No LNs CARDIOVASCULAR: S1, S2 muffled. No murmur RESPIRATION: Breath sounds diminished in the bases. No rhonchi or crackles. ABDOMEN: Soft, mildly distended ,nontender. No guarding. no masses palpable. Bowel sounds heard. LEGS: No edema. no swelling PSYCHIATRY: Alert and oriented -3, mood and affect normal. NERVOUS SYSTEM: Cranial N 2-12 grossly normal. Moves all 4 limbs. Diffuse weakness with tremors. Positive hepatic flap. Skin: no ulcer no rash, jaundiced. - Labs CBC & Chem 7: 05/16/18 08:12 05/16/18 08:12 Labs: Abnormal Lab Results - Last 24 Hours (Table) 05/15/18 05/15/18 05/15/18 Range/Units 19:29 19:29 19:29 RBC 3.55 L (4.30-5.90) m/uL Hgb (13.0-17.5) gm/dL Hct (39.0-53.0) % MCV 116.0 H (80.0-100.0) fL MCH 38.6 H (25.0-35.0) pg Plt Count 44 L* (150-450) k/uL Lymphocytes # (1.0-4.8) k/uL PT 18.3 H (9.0-12.0) sec INR 2.0 H (<1.2) APTT 32.1 H (22.0-30.0) sec Chloride 92 L (98-107) mmol/L Creatinine 0.60 L (0.66-1.25) mg/dL Glucose (74-99) mg/dL Plasma Lactic Acid Nik (0.7-2.0) mmol/L Calcium 7.4 L (8.4-10.2) mg/dL Magnesium 1.4 L (1.6-2.3) mg/dL Total Bilirubin 21.8 H* (0.2-1.3) mg/dL Conjugated Bilirubin (0.0-0.3) mg/dL Unconjugated Bilirubin (0.0-1.1) mg/dL Delta Bilirubin (0.0-0.2) mg/dL AST 222 H (17-59) U/L Alkaline Phosphatase 258 H (38-126) U/L Ammonia (<30) umol/L Total Protein 9.1 H (6.3-8.2) g/dL Albumin (3.5-5.0) g/dL Lipase 585 H (23-300) U/L Urine Protein (Negative) Urine Ketones (Negative) Urine Blood (Negative) Urine Bilirubin (Negative) Urine Bacteria (None) /hpf Urine Mucus (None) /hpf 05/15/18 05/15/18 05/15/18 Range/Units 19:29 19:29 21:21 RBC (4.30-5.90) m/uL Hgb (13.0-17.5) gm/dL Hct (39.0-53.0) % MCV (80.0-100.0) fL MCH (25.0-35.0) pg Plt Count (150-450) k/uL Lymphocytes # (1.0-4.8) k/uL PT (9.0-12.0) sec INR (<1.2) APTT (22.0-30.0) sec Chloride (98-107) mmol/L Creatinine (0.66-1.25) mg/dL Glucose (74-99) mg/dL Plasma Lactic Acid Nik 2.9 H* (0.7-2.0) mmol/L Calcium (8.4-10.2) mg/dL Magnesium (1.6-2.3) mg/dL Total Bilirubin 22.0 H* (0.2-1.3) mg/dL Conjugated Bilirubin 16.0 H (0.0-0.3) mg/dL Unconjugated Bilirubin 2.5 H (0.0-1.1) mg/dL Delta Bilirubin 3.5 H (0.0-0.2) mg/dL AST (17-59) U/L Alkaline Phosphatase (38-126) U/L Ammonia (<30) umol/L Total Protein (6.3-8.2) g/dL Albumin (3.5-5.0) g/dL Lipase (23-300) U/L Urine Protein 1+ H (Negative) Urine Ketones 1+ H (Negative) Urine Blood Moderate H (Negative) Urine Bilirubin 4+ H (Negative) Urine Bacteria Few H (None) /hpf Urine Mucus Many H (None) /hpf 05/15/18 05/16/18 05/16/18 Range/Units 23:30 08:12 08:12 RBC 2.94 L (4.30-5.90) m/uL Hgb 11.9 L (13.0-17.5) gm/dL Hct 35.4 L (39.0-53.0) % MCV 120.2 H (80.0-100.0) fL MCH 40.3 H (25.0-35.0) pg Plt Count 35 L* (150-450) k/uL Lymphocytes # 0.8 L (1.0-4.8) k/uL PT (9.0-12.0) sec INR (<1.2) APTT (22.0-30.0) sec Chloride 96 L (98-107) mmol/L Creatinine (0.66-1.25) mg/dL Glucose 115 H (74-99) mg/dL Plasma Lactic Acid Nik 3.6 H* (0.7-2.0) mmol/L Calcium 6.7 L (8.4-10.2) mg/dL Magnesium 1.5 L (1.6-2.3) mg/dL Total Bilirubin 21.5 H* (0.2-1.3) mg/dL Conjugated Bilirubin (0.0-0.3) mg/dL Unconjugated Bilirubin (0.0-1.1) mg/dL Delta Bilirubin (0.0-0.2) mg/dL AST 197 H (17-59) U/L Alkaline Phosphatase 203 H (38-126) U/L Ammonia (<30) umol/L Total Protein (6.3-8.2) g/dL Albumin 3.0 L (3.5-5.0) g/dL Lipase (23-300) U/L Urine Protein (Negative) Urine Ketones (Negative) Urine Blood (Negative) Urine Bilirubin (Negative) Urine Bacteria (None) /hpf Urine Mucus (None) /hpf 05/16/18 05/16/18 05/16/18 Range/Units 08:12 08:12 12:18 RBC (4.30-5.90) m/uL Hgb (13.0-17.5) gm/dL Hct (39.0-53.0) % MCV (80.0-100.0) fL MCH (25.0-35.0) pg Plt Count (150-450) k/uL Lymphocytes # (1.0-4.8) k/uL PT 20.1 H (9.0-12.0) sec INR 2.2 H (<1.2) APTT (22.0-30.0) sec Chloride (98-107) mmol/L Creatinine (0.66-1.25) mg/dL Glucose (74-99) mg/dL Plasma Lactic Acid Nik 2.8 H* 2.6 H* (0.7-2.0) mmol/L Calcium (8.4-10.2) mg/dL Magnesium (1.6-2.3) mg/dL Total Bilirubin (0.2-1.3) mg/dL Conjugated Bilirubin (0.0-0.3) mg/dL Unconjugated Bilirubin (0.0-1.1) mg/dL Delta Bilirubin (0.0-0.2) mg/dL AST (17-59) U/L Alkaline Phosphatase (38-126) U/L Ammonia 76 H (<30) umol/L Total Protein (6.3-8.2) g/dL Albumin (3.5-5.0) g/dL Lipase (23-300) U/L Urine Protein (Negative) Urine Ketones (Negative) Urine Blood (Negative) Urine Bilirubin (Negative) Urine Bacteria (None) /hpf Urine Mucus (None) /hpf Assessment and Plan Assessment: 1. Acute alcoholic hepatitis, acute hepatic failure secondary to possibly liver cirrhosis 2. Ascites 3. Thrombocytopenia 4. Alcoholism 5. Mild pancreatitis 6. History of nicotine dependence 7. History of seizure disorder 8. Depression 9. Coagulopathy 10. Hyperammonemia Plan: Continue on current medication regime ,monitoring and symptomatic treatment. Maintain PPI, lactulose, CIWA protocol. Maintain seizure precautions .Close monitoring of coag's, ammonia, liver enzymes. Alcohol cessation readdressed. Follow closely with GI. Prognosis guarded given multiple complex medical issues. The impression and plan of care has been dictated as directed. : I performed a history and examination of this patient, discussed the same with the dictator. I agree with the dictator's note ,documented as a scribe. Any additional findings or plans will be noted.
[2018-05-16] MEDS ORDERED: cefTRIAXone IN SWFI 1,000 MG/10 ML SYRINGE IVP SCH (20:00)
[2018-05-16 22:57] VITALS: RESP 17; TEMP 99.7
[2018-05-17 08:07] LABS: INR 2.6 (<1.2)
[2018-05-17 09:33] LABS: ALT 40 U/L (21-72); AST 219 U/L (17-59); Albumin 2.9 g/dL (3.5-5.0); Alkaline Phosphatase 216 U/L (38-126); Anion Gap 18 mmol/L; Blood Urea Nitrogen 11 mg/dL (9-20); Calcium 7.4 mg/dL (8.4-10.2); Carbon Dioxide 27 mmol/L (22-30); Chloride 92 mmol/L (98-107); Glucose 98 mg/dL (74-99); Sodium 137 mmol/L (137-145); Total Protein 7.7 g/dL (6.3-8.2)
[2018-05-17 10:53] LABS: Basophils % (A) 0 %; Eosinophils % (A) 0 %; HGB 11.3 gm/dL (13.0-17.5); Lymphocytes # (A) 1.1 k/uL (1.0-4.8); Lymphocytes % (A) 10 %; MCH 39.4 pg (25.0-35.0); MCHC 33.3 g/dL (31.0-37.0); MCV 118.6 fL (80.0-100.0); Macrocytosis Marked; Mean Platelet Volume 10.1; Monocytes # (A) 0.7 k/uL (0-1.0); Monocytes % (A) 6 %; Neutrophils % (A) 82 %; RBC 2.87 m/uL (4.30-5.90); RDW 15.3 % (11.5-15.5)
[2018-05-17 10:55] LABS: Platelet Count 40 k/uL (150-450)
--- NOTE | 2018-05-17 11:50 | P.PN ---
Subjective Progress Note Date: 05/17/18 Principal diagnosis: ETOH hepatitis Feels about the same. Nausea this morning. Slight agitation. Alert oriented x 3. CMP pending. INR increased to 2.6. Intermittent shaking early DT's. Afebrile. Ammonia pending. Objective - Vital Signs Vital signs: Vital Signs Temp 99.7 F H 05/16/18 22:56 Pulse 108 H 05/17/18 08:00 Resp 17 05/16/18 22:56 BP 129/69 05/16/18 22:56 Pulse Ox 98 05/16/18 22:56 Intake & Output 05/16/18 05/17/18 05/17/18 18:59 06:59 18:59 Other: Voiding Method Urinal Urinal Incontinent # Voids 3 1 # Bowel Movements 1 1 - Constitutional General appearance: Present: average body habitus - EENT EENT Comment(s): sclera icteric visibly jaundice - Neck Neck: Present: normal ROM - Respiratory Respiratory: bilateral: CTA - Cardiovascular Rhythm: regular Heart sounds: normal: S1, S2 - Gastrointestinal General gastrointestinal: Present: soft - Labs CBC & Chem 7: 05/17/18 06:55 05/16/18 08:12 Labs: Abnormal Lab Results - Last 24 Hours (Table) 05/16/18 05/17/18 05/17/18 Range/Units 12:18 06:55 06:55 WBC 11.0 H (3.8-10.6) k/uL RBC 2.87 L (4.30-5.90) m/uL Hgb 11.3 L (13.0-17.5) gm/dL Hct 34.0 L (39.0-53.0) % MCV 118.6 H (80.0-100.0) fL MCH 39.4 H (25.0-35.0) pg Plt Count 40 L* (150-450) k/uL PT 23.0 H (9.0-12.0) sec INR 2.6 H (<1.2) Plasma Lactic Acid Nik 2.6 H* (0.7-2.0) mmol/L Microbiology - Last 24 Hours (Table) 05/15/18 19:55 Blood Culture - Preliminary Blood No Growth after 24 hours Assessment and Plan (1) Alcoholic hepatitis Narrative/Plan: Severe alcohol hepatitis. MDS score approximately 58. Current Visit: Yes Status: Acute Code(s): K70.10 - ALCOHOLIC HEPATITIS WITHOUT ASCITES SNOMED Code(s): 064820262 (2) Alcohol intoxication Current Visit: Yes Status: Acute Code(s): F10.129 - ALCOHOL ABUSE WITH INTOXICATION, UNSPECIFIED SNOMED Code(s): 28119742 (3) EtOH dependence Current Visit: Yes Status: Acute Code(s): F10.20 - ALCOHOL DEPENDENCE, UNCOMPLICATED SNOMED Code(s): 38412105 (4) Thrombocytopenia Current Visit: Yes Status: Acute Code(s): D69.6 - THROMBOCYTOPENIA, UNSPECIFIED SNOMED Code(s): 349772605 (5) Coagulopathy Narrative/Plan: worsening despite Vitamin K administration Current Visit: Yes Status: Acute Code(s): D68.9 - COAGULATION DEFECT, UNSPECIFIED SNOMED Code(s): 34943154 (6) Elevated lipase Current Visit: Yes Status: Acute Code(s): R74.8 - ABNORMAL LEVELS OF OTHER SERUM ENZYMES SNOMED Code(s): 352312580 (7) Hyperammonemia Current Visit: Yes Status: Acute Code(s): E72.20 - DISORDER OF UREA CYCLE METABOLISM, UNSPECIFIED SNOMED Code(s): 7816429 (8) DTs (delirium tremens) Narrative/Plan: increased agitation and shaking Current Visit: Yes Status: Acute Code(s): F10.231 - ALCOHOL DEPENDENCE WITH WITHDRAWAL DELIRIUM SNOMED Code(s): 7560932 Plan: 1. Liquid diet as tolerated. No steroids at this time until ammonia level improves. CMP ammonia pending. INR daily. Vitamin K ordered dialy. Consideration to transfer to tertiary center secondary to increasing INR; will discuss with medicine. Assessment and plan of care discussed with Dr. Mahmood
[2018-05-17 12:01] LABS: Target Cells Present
[2018-05-17 12:02] LABS: Anisocytosis (M) Present; Poikilocytosis (M) Present
[2018-05-17] MEDS ORDERED: IPRATROPIUM-ALBUTEROL 3 ML NEB INHALATION PRN (12:11)
[2018-05-17] MEDS ORDERED: PANTOPRAZOLE 40 MG/10 ML VIAL IVP SCH (12:30)
[2018-05-17] MEDS ORDERED: IPRATROPIUM-ALBUTEROL 3 ML NEB INHALATION SCH (13:00)
[2018-05-17] MEDS: metroNIDAZOLE-NS PMX 500 MG in SALINE 1 100ML.BAG IVPB SCH (13:01)
[2018-05-17] MEDS: PHYTONADIONE ORAL 5 MG/5 ML ORAL.SYRG PO SCH (13:01)
[2018-05-17] MEDS: LACTULOSE 20 GM/30 ML CUP PO SCH (13:01)
[2018-05-17] MEDS: THIAMINE 100 MG TAB PO SCH (13:56)
[2018-05-17 14:32] VITALS: PULSE 129
--- NOTE | 2018-05-17 14:35 | DS ---
DISCHARGE SUMMARY FINAL DIAGNOSES: 1. Acute hepatic failure secondary to possibly alcoholic hepatitis and cirrhosis of the liver. 2. Hyperbilirubinemia. 3. Possible upper gastrointestinal bleeding with coffee-ground emesis. 4. Thrombocytopenia. 5. Coagulopathy secondary to chronic liver disease, possibly with hepatitis. 6. Ascites. 7. History of EtOH. 8. Increased plasma lactic acid. 9. Increased AST. 10.Increased lipase with mild pancreatitis possibly. 11.History of nicotine dependence. 12.History of seizure disorder. 13.History of depression. DISCHARGE DISPOSITION: The patient is being discharged in stable condition with guarded prognosis. HISTORY OF PRESENT ILLNESS: This 47-year-old gentleman with a past medical history of multiple medical problems as mentioned earlier was admitted with features of acute hepatic failure. The patient also had evidence of chronic liver disease. The bilirubin was elevated up to 21.5. Ammonia was also elevated to 76, and INR was 2.6, and platelets of 40, which is stable. The patient also had some coffee-ground emesis and patient treated symptomatically. GI saw the patient. The patient be transferred in stable condition with guarded prognosis to [facility]. Total time taken 35 minutes. The patient was given antibiotics and proton pump inhibitors and bronchodilators and as well as vitamin K. Please refer to the med sheet for further details. MMODL / IJN: [id number] /
[2018-05-17 14:46] LABS: Potassium 2.9 mmol/L (3.5-5.1)
[2018-05-17 14:47] LABS: Total Bilirubin 25.2 mg/dL (0.2-1.3)
== END 2018-05-17 15:36 | disposition short-term general hospital (02) | DRG 441 ==
LOC: EC 19:04 → 4MS4W 22:23
PROVIDERS: ADMIT Hospitalist; ATTEND Hospitalist
DX: K72.00 Acute and subacute hepatic failure without coma (principal); K85.90 Acute pancreatitis without necrosis or infection, unspecified; F10.231 Alcohol dependence with withdrawal delirium; D68.4 Acquired coagulation factor deficiency; K70.11 Alcoholic hepatitis with ascites; K70.31 Alcoholic cirrhosis of liver with ascites; D69.6 Thrombocytopenia, unspecified; K76.0 Fatty (change of) liver, not elsewhere classified; R16.1 Splenomegaly, not elsewhere classified; G40.909 Epilepsy, unspecified, not intractable, without status epilepticus; F32.9 Major depressive disorder, single episode, unspecified; F10.229 Alcohol dependence with intoxication, unspecified; F17.200 Nicotine dependence, unspecified, uncomplicated; Z71.6 Tobacco abuse counseling; Z71.41 Alcohol abuse counseling and surveillance of alcoholic; Y90.8 Blood alcohol level of 240 mg/100 ml or more; Z83.3 Family history of diabetes mellitus; Z82.49 Family history of ischemic heart disease and other diseases of the circulatory system
CPT/HCPCS: 36415; 71046; 74176; 76705; 80053; 80074; 80306; 80320; 81001; 82075; 82140; 82150; 82248; 83520; 83605; 83690; 83735; 84100; 85025; 85610; 85730; 87040; 93005; 94640; 96365; 96366; 96368; 96372; 96375; 99285